=== PATIENT | female | born 1970 | race Caucasian/White ===

== ENCOUNTER → 2016-10-10 | Outpatient (CLI) | payer OTHER ==
[2016-10-10 17:25] LABS: POTASSIUM SERUM 4.3 MEQ/L (3.5-5.1)
== END ==
LOC: M WUC 10:54
PROVIDERS: ATTEND Nurse Practitioner Family
DX: L70.0 Acne vulgaris (principal); Z51.81 Encounter for therapeutic drug level monitoring

== ENCOUNTER → 2017-03-12 | Outpatient (CLI) | payer OTHER ==
[2017-03-12 19:29] LABS: ALBUMIN 4.4 GM/DL (3.2-5.2); ALBUMIN/GLOBULIN RATIO 1.76 (1.00-1.93); ALKALINE PHOSPHATASE 61 U/L (45-117); ALT/SGPT 22 U/L (12-78); ANION GAP 3 MEQ/L (8-16); AST/SGOT 15 U/L (15-37); BILIRUBIN,TOTAL 0.6 MG/DL (0.2-1.0); BLOOD UREA NITROGEN 18 MG/DL (7-18); CALCIUM LEVEL 9.2 MG/DL (8.5-10.1); CARBON DIOXIDE LEVEL 31 MEQ/L (21-32); CHLORIDE LEVEL 103 MEQ/L (98-107); CHOLESTEROL LEVEL 189 MG/DL (<200); CREATININE FOR GFR 0.87 MG/DL (0.55-1.02); GLOMERULAR FILTRATION RATE > 60.0 (>58); GLUCOSE, FASTING 90 MG/DL (70-105); PERCENT SATURATION 44.3 % (13.2-37.4); POTASSIUM SERUM 4.8 MEQ/L (3.5-5.1); SODIUM LEVEL 137 MEQ/L (136-145); TOTAL IRON BINDING CAPACITY 307 UG/DL (250-450); TOTAL PROTEIN 6.9 GM/DL (6.4-8.2); TRIGLYCERIDES LEVEL 52 MG/DL (<150)
[2017-03-12 20:05] LABS: MEAN CORPUSCULAR HEMOGLOBIN 30.4 pg (27.0-33.0); MEAN CORPUSCULAR HGB CONC 34.3 g/dl (32.0-36.5); MEAN CORPUSCULAR VOLUME 88.7 fl (80.0-96.0); PLATELET COUNT, AUTOMATED 265 k/mm3 (150-450); RED CELL DISTRIBUTION WIDTH 12.5 % (11.5-14.5)
[2017-03-12 20:50] LABS: BASOPHILS 1 % (0-4); EOSINOPHILS 10 % (0-5)
[2017-03-13 09:36] LABS: FOLATE 19.8 NG/ML; VITAMIN B12 LEVEL 564 PG/ML
== END ==
LOC: M WUC 09:26
PROVIDERS: ATTEND Emergency Medicine
DX: R53.83 Other fatigue (principal)

== ENCOUNTER → 2017-08-28 | Outpatient (CLI) | payer BC ==
--- NOTE | 2017-08-28 17:56 | REPMRS ---
Patient History The patient states she has not had a clinical breast exam in over a year. Patient has history of other cancer at age 19. No known family history of cancer. Taking unspecified hormones for 6 years. Digital Woman Screen Mammo: August 28, 2017 - Exam #: [id number] Bilateral CC and MLO view(s) were taken. Technologist: Vida Hsieh, Technologist Prior study comparison: May 13, 2015, digital woman screen mammo performed at [facility]. April 07, 2014, digital woman screen mammo performed at [facility]. FINDINGS: The breast tissue is heterogeneously dense. This may lower the sensitivity of mammography. There has been no change in the appearance of the mammogram from the prior studies. There is a moderate amount of residual fibroglandular tissue which is fairly symmetric. Stable minor tissue asymmetry in the inner half left breast is unchanged. There is no interval development of dominant mass, architectural distortion, or clustered microcalcification typical of malignancy. No significant changes when compared with prior studies. ASSESSMENT: BI-RADS/ACR category 2 mammogram. Benign finding(s). Recommendation Routine screening mammogram in 1 year (for women over age 40). This mammogram was interpreted with the aid of an FDA-approved computer-aided dectection system. A. Negative x-ray reports should not delay biopsy if a dominant or clinically suspicious mass is present. B. Four to eight percent of cancers are not identified by mammography. C. Adenosis and dense breast may obscure an underlying neoplasm. Electronically Signed By: Rober Colon MD 08/28/17 [id number]
== END ==
LOC: M WHC 14:59
PROVIDERS: ATTEND Emergency Medicine
DX: Z12.31 Encounter for screening mammogram for malignant neoplasm of breast (principal)

== ENCOUNTER 2017-09-12 15:52 | Emergency (ER) | payer BC, OTHER ==
[~2017-09-12] VITALS: Ht 165.1 cm; Wt 59.1 kg
[2017-09-12] MEDS ORDERED: DULO1CAP2 PO (16:05)
[2017-09-12] MEDS ORDERED: MULTCAP8 PO (16:05)
[2017-09-12] MEDS ORDERED: IBUP-1022 PO (16:05)
[2017-09-12] MEDS ORDERED: SPIR50TA2 (16:05)
[2017-09-12] MEDS ORDERED: TYLE325T5 PO (16:05)
[2017-09-12] MEDS ORDERED: MOME0.1S (16:05)
[2017-09-12] MEDS ORDERED: PEPT262T2 PO (16:05)
[2017-09-12] MEDS ORDERED: NS 1,000 ML IV ONE (17:30)
[2017-09-12] MEDS ORDERED: GI COCKTAIL 50ML BTL(HYOSCYAMINE/MAALOX/LIDOCAINE VISCOUS)(1:3:1) PO ONE (17:30)
[2017-09-12] MEDS ORDERED: ONDANSETRON 4MG/2ML VIAL (J2405) IV ONE (17:30)
[2017-09-12] MEDS: MORPHINE 4 MG/ML 1ML SYRINGE IV PRN ×2 (17:51→20:50)
[2017-09-12 18:05] LABS: BASO % 0.2 % (0.0-1.0); EOS % 0.2 % (0.0-3.0); IMMATURE GRANULOCYTE % 0.3 % (0-0); LYMPH % 2.2 % (24.0-44.0); MEAN CORPUSCULAR HEMOGLOBIN 30.4 pg (27.0-33.0); MEAN CORPUSCULAR HGB CONC 35.8 g/dl (32.0-36.5); MEAN CORPUSCULAR VOLUME 84.9 fl (80.0-96.0); MONO # 0.2 10^3/uL (0.0-0.8); MONO % 3.5 % (0.0-5.0); NEUTROPHILS # 6.1 10^3/uL (1.8-7.7); NEUTROPHILS % 93.6 % (36.0-66.0); PLATELET COUNT, AUTOMATED 182 10^3/uL (150-450); RED CELL DISTRIBUTION WIDTH 12.3 % (11.5-14.5); WHITE BLOOD COUNT 6.5 10^3/uL (4.0-10.0)
[2017-09-12 18:17] LABS: ALBUMIN 4.2 GM/DL (3.2-5.2); ALKALINE PHOSPHATASE 61 U/L (45-117); ALT/SGPT 39 U/L (12-78); ANION GAP 7 MEQ/L (8-16); AST/SGOT 27 U/L (7-37); BILIRUBIN,DIRECT 0.2 MG/DL (0.0-0.2); BILIRUBIN,TOTAL 0.7 MG/DL (0.2-1.0); BLOOD UREA NITROGEN 17 MG/DL (7-18); CALCIUM LEVEL 8.7 MG/DL (8.5-10.1); CARBON DIOXIDE LEVEL 29 MEQ/L (21-32); CHLORIDE LEVEL 102 MEQ/L (98-107); CREATININE FOR GFR 0.73 MG/DL (0.55-1.02); GLOMERULAR FILTRATION RATE > 60.0 (>58); GLUCOSE, FASTING 102 MG/DL (70-105); POTASSIUM SERUM 3.7 MEQ/L (3.5-5.1); SODIUM LEVEL 138 MEQ/L (136-145); TOTAL PROTEIN 7.2 GM/DL (6.4-8.2)
[2017-09-12 18:25] LABS: LYMPH # 0.1 10^3/uL (1.5-4.5); POSITIVE DIFF POS FLAG
[2017-09-12] MEDS ORDERED: READI-CAT 2 PO ONE ×2 (19:50→20:20)
[2017-09-12 20:31] LABS: MUCUS, URINE RFX SMALL (NEGATIVE); SPECIFIC GRAVITY UR AUTO RFX 1.027 (1.002-1.035); SQUAM EPITHELIAL CELL UR AURFX 4 /HPF (0-6)
--- NOTE | 2017-09-12 21:10 | REPUSA ---
CT of the abdomen without contrast Clinical statement: Pain. Technique: Multiple axial CT images were obtained from the base of the lungs to the iliac crests util izing 5 mm axial slices after administration of oral contrast. Coronal and sagittal reconstructions w ere also obtained. No comparison is available. Findings: The visualized lung bases are clear. The kidneys are normal in size bilaterally. There is no evidence of hydronephrosis or nephrolithiasis. The liver, spleen, pancreas, gallbladder and adrenal glands ar e unremarkable. The aorta demonstrates normal caliber and contour. There is no abdominal lymphadenopa thy or ascites. The stomach is distended. No focal inflammatory changes are seen in the stomach or sm all bowel. Moderate amount of stool fills the colon. There are no suspicious osseous abnormalities se en. Impression: 1. No obstructive or inflammatory bowel changes. There is distention of the stomach noted. Moderate c onstipation is appreciated. 2. No evidence of hydronephrosis or nephrolithiasis.
[2017-09-12] MEDS ORDERED: ZOFR4TAB3 PO (21:31)
[2017-09-12] MEDS ORDERED: SUCR1SS PO (21:31)
[2017-09-12 21:44] VITALS: BP 103/67
[2017-09-12] MEDS ORDERED: ONDANSETRON 4 MG ORAL DISINTEGRATING TAB (S0181) PO ONE (21:45)
[2017-09-12] MEDS ORDERED: SUCRALFATE 1 GM TAB PO ONE (21:45)
== END 2017-09-12 22:04 | disposition home or self-care (01) ==
LOC: M ED 15:52
DX: K29.00 Acute gastritis without bleeding (principal); K52.9 Noninfective gastroenteritis and colitis, unspecified; K27.9 Peptic ulcer, site unspecified, unspecified as acute or chronic, without hemorrhage or perforation; F33.9 Major depressive disorder, recurrent, unspecified; Z87.440 Personal history of urinary (tract) infections; Z91.048 Other nonmedicinal substance allergy status
CPT/HCPCS: 74160; 80048; 80076; 81001; 83690; 85025; 87086; 96374; 96375; 96376; 99284; J2405

== ENCOUNTER → 2017-10-10 | Outpatient (REF) | payer OTHER ==
[2017-10-13 00:06] LABS: H PYLORI STOOL ANTIGEN Negative (Negative)
== END ==
LOC: M LAB REF 10:04
DX: K59.00 Constipation, unspecified (principal)

== ENCOUNTER → 2017-10-26 | Outpatient (REF) | payer OTHER ==
[2017-10-28 14:15] LABS: HPV HYBRID CAPTURE II Positive (Negative)
== END ==
LOC: M SFHCWAGY 15:41
DX: Z12.4 Encounter for screening for malignant neoplasm of cervix (principal)

== ENCOUNTER → 2017-11-01 | Outpatient (REF) | payer OTHER | LOC: M SFHCWAGY 13:07 | DX: R87.810 Cervical high risk human papillomavirus (HPV) DNA test positive (principal) ==

== ENCOUNTER 2017-11-24 11:31 | Day surgery (SDC) | payer BC, OTHER ==
[2017-11-24] MEDS: NS 1,000 ML IV (11:58)
[2017-11-24] MEDS ORDERED: PROPOFOL 200 MG/20 ML VIAL As Ordered (12:49)
== END 2017-11-24 13:51 | disposition home or self-care (01) ==
LOC: M OPP 11:31
DX: R93.3 Abnormal findings on diagnostic imaging of other parts of digestive tract (principal); K62.5 Hemorrhage of anus and rectum; K59.00 Constipation, unspecified; F32.9 Major depressive disorder, single episode, unspecified; J45.909 Unspecified asthma, uncomplicated; Z88.3 Allergy status to other anti-infective agents; Z79.899 Other long term (current) drug therapy
CPT/HCPCS: 45378

== ENCOUNTER 2017-12-25 07:29 | Day surgery (SDC) | payer BC, OTHER ==
[2017-12-25] MEDS: NS 1,000 ML IV (08:21)
[2017-12-25] MEDS ORDERED: PROPOFOL 200 MG/20 ML VIAL As Ordered ×2 (09:16→09:57)
== END 2017-12-25 10:58 | disposition home or self-care (01) ==
LOC: M OPP 07:29
DX: R93.3 Abnormal findings on diagnostic imaging of other parts of digestive tract (principal); K59.00 Constipation, unspecified; R19.4 Change in bowel habit; K63.89 Other specified diseases of intestine; K64.8 Other hemorrhoids; F32.9 Major depressive disorder, single episode, unspecified; J45.909 Unspecified asthma, uncomplicated; Z88.3 Allergy status to other anti-infective agents; Z79.899 Other long term (current) drug therapy
CPT/HCPCS: 45380

== ENCOUNTER → 2018-12-27 | Outpatient (CLI) | payer BC ==
[~2018-12-27] MED LIST: ALL10TAB28 PO; DULO1CAP2 PO; IBUP-1022 PO; MIRA3350 PO; MIRE1IUD IU; MOME0.1S; MULTCAP8 PO; PEPT262T2 PO; PROAAER10 INH; SENN8.6C PO; SPIR-10 PO; SPIR50TA4 PO; SUCR1SS PO; TYLE325T5 PO; VITA200015 PO; ZOFR4TAB14 PO
--- NOTE | 2018-12-27 16:34 | REPMRS ---
Patient History The patient states she had a clinical breast exam in Patient has history of basal cell skin cancer at age 19. No known family history of cancer. Taking hormonal contraceptives for 7 years 4 months. 3D TOMOSYNTHESIS WAS PERFORMED. Digital Woman Screen Mammo: December 27, 2018 - Exam #: [id number] Bilateral CC and MLO view(s) were taken. Technologist: Katherin Ordaz, Technologist Prior study comparison: August 28, 2017, digital woman screen mammo performed at [facility]. May 13, 2015, digital woman screen mammo performed at [facility]. FINDINGS: The breast tissue is heterogeneously dense. This may lower the sensitivity of mammography. There has been no change in the appearance of the mammogram from the prior studies. There is a moderate amount of residual fibroglandular tissue which is fairly symmetric. There is no interval development of dominant mass, areas of architectural distortion, or clustered microcalcification typical of malignancy. Assessment: BI-RADS/ACR category 1 mammogram. Negative Mammogram. Recommendation Routine screening mammogram in 1 year (for women over age 40). This mammogram was interpreted with the aid of an FDA-approved computer-aided dectection system. Electronically Signed By: Edgard Lu MD 12/27/18 [id number]
== END ==
LOC: M WHC 15:17
PROVIDERS: ATTEND Nurse Practitioner Women's Health
DX: Z12.31 Encounter for screening mammogram for malignant neoplasm of breast (principal); Z85.828 Personal history of other malignant neoplasm of skin; Z92.0 Personal history of contraception

== ENCOUNTER → 2018-12-27 | Outpatient (REF) | payer OTHER ==
[2018-12-29 15:33] LABS: HPV HYBRID CAPTURE II Negative (Negative)
== END ==
LOC: M SFHCWAGY 15:15
PROVIDERS: ATTEND Nurse Practitioner Women's Health
DX: Z12.4 Encounter for screening for malignant neoplasm of cervix (principal)

== ENCOUNTER → 2019-02-09 | Outpatient (CLI) | payer BC ==
[2019-02-09 13:32] LABS: BASO % 0.8 % (0.0-1.0); EOS # 0.3 10^3/uL (0.0-0.50); EOS % 7.2 % (0.0-3.0); HEMATOCRIT 41.2 % (36.0-47.0); HEMOGLOBIN 13.7 g/dl (12.0-15.5); LYMPH % 24.5 % (24.0-44.0); MEAN CORPUSCULAR HEMOGLOBIN 30.2 pg (27.0-33.0); MEAN CORPUSCULAR HGB CONC 33.3 g/dl (32.0-36.5); MEAN CORPUSCULAR VOLUME 90.9 fl (80.0-96.0); MONO # 0.4 10^3/uL (0.0-0.8); MONO % 11.1 % (0.0-5.0); NEUTROPHILS # 2.2 10^3/uL (1.8-7.7); NEUTROPHILS % 56.1 % (36.0-66.0); PLATELET COUNT, AUTOMATED 225 10^3/uL (150-450); RED BLOOD COUNT 4.53 10^6/uL (4.00-5.40); WHITE BLOOD COUNT 3.9 10^3/uL (4.0-10.0)
[2019-02-09 13:44] LABS: ALBUMIN 4.2 GM/DL (3.2-5.2); ALT/SGPT 22 U/L (12-78); BILIRUBIN,TOTAL 0.5 MG/DL (0.2-1.0); BLOOD UREA NITROGEN 16 MG/DL (7-18); CALCIUM LEVEL 9.1 MG/DL (8.5-10.1); CARBON DIOXIDE LEVEL 30 MEQ/L (21-32); CHLORIDE LEVEL 106 MEQ/L (98-107); CHOLESTEROL LEVEL 194 MG/DL (<200); CHOLESTEROL RISK RATIO 3.129 (<5); CREATININE FOR GFR 0.84 MG/DL (0.55-1.30); FERRITIN 50 NG/ML (8-252); FREE T4 0.72 NG/DL (0.76-1.46); GLOMERULAR FILTRATION RATE > 60.0 (>51); GLUCOSE, FASTING 92 MG/DL (70-100); HDL CHOLESTEROL 62 MG/DL (>40); IRON (FE) 173 UG/DL (50-170); LDL CHOLESTEROL 119 MG/DL (<100); NON-HDL-C 132 MG/DL; PERCENT SATURATION 59.2 % (13.2-45.0); POTASSIUM SERUM 4.5 MEQ/L (3.5-5.1); SODIUM LEVEL 141 MEQ/L (136-145); TOTAL IRON BINDING CAPACITY 292 UG/DL (250-450); TOTAL PROTEIN 6.7 GM/DL (6.4-8.2); TRIGLYCERIDES LEVEL 64 MG/DL (<150)
== END ==
LOC: M WUC 10:02
PROVIDERS: ATTEND Physician Assistant
DX: Z13.29 Encounter for screening for other suspected endocrine disorder (principal); F33.0 Major depressive disorder, recurrent, mild

== ENCOUNTER → 2019-05-19 | Outpatient (CLI) | payer OTHER, BC ==
[~2019-05-19] MED LIST changes: -DULO1CAP2 PO; +DULO1CAP5 PO
[2019-05-19 17:29] LABS: BASO % 0.2 % (0.0-1.0); EOS # 0.2 10^3/uL (0.0-0.50); EOS % 5.6 % (0.0-3.0); HEMATOCRIT 42.7 % (36.0-47.0); HEMOGLOBIN 14.1 g/dl (12.0-15.5); LYMPH # 0.9 10^3/uL (1.5-4.5); LYMPH % 22.9 % (24.0-44.0); MEAN CORPUSCULAR HEMOGLOBIN 29.4 pg (27.0-33.0); MEAN CORPUSCULAR VOLUME 89.1 fl (80.0-96.0); MONO # 0.5 10^3/uL (0.0-0.8); MONO % 12.2 % (0.0-5.0); NEUTROPHILS # 2.4 10^3/uL (1.8-7.7); NEUTROPHILS % 58.9 % (36.0-66.0); PLATELET COUNT, AUTOMATED 256 10^3/uL (150-450); RED BLOOD COUNT 4.79 10^6/uL (4.00-5.40); WHITE BLOOD COUNT 4.1 10^3/uL (4.0-10.0)
[2019-05-19 17:45] LABS: FREE T4 0.69 NG/DL (0.76-1.46); THYROID STIMULATING HORMONE 3.02 uIU/ML (0.358-3.740)
== END ==
LOC: M WUC 09:46
PROVIDERS: ATTEND Physician Assistant
DX: Z13.29 Encounter for screening for other suspected endocrine disorder (principal)

== ENCOUNTER → 2019-08-14 | Outpatient (CLI) | payer OTHER, BC ==
[~2019-08-14] MED LIST changes: -ALL10TAB28 PO; +ALL10TAB29 PO
[2019-08-14 20:32] LABS: FREE T4 0.88 NG/DL (0.76-1.46)
[2019-08-14 20:34] LABS: THYROID PEROXIDASE ANTIBODY < 28.0 U/ML (<60.0)
== END ==
LOC: M WUC 17:11
PROVIDERS: ATTEND Physician Assistant
DX: E03.9 Hypothyroidism, unspecified (principal)

== ENCOUNTER → 2020-01-14 | Outpatient (REF) | payer OTHER | LOC: M SFHCWAGY 18:10 | PROVIDERS: ATTEND Nurse Practitioner Women's Health | DX: Z12.4 Encounter for screening for malignant neoplasm of cervix (principal) | CPT/HCPCS: 87624; G0123 ==

== ENCOUNTER → 2020-01-14 | Outpatient (CLI) | payer BC ==
--- NOTE | 2020-01-14 14:27 | REPMRS ---
Patient History The patient states she had a clinical breast exam in December 2019. No known family history of cancer. Taking hormonal contraceptives for 7 years 4 months. 3D TOMOSYNTHESIS WAS PERFORMED. [facility] VOLPARA BREAST DENSITY C. Digital Woman Screen Mammo: January 14, 2020 - Exam #: [id number] Bilateral CC and MLO view(s) were taken. Technologist: Sunitha Blancas, Technologist Prior study comparison: December 27, 2018, bilateral digital woman screen mammo performed at [facility]. August 28, 2017, digital woman screen mammo performed at [facility]. FINDINGS: The breast tissue is heterogeneously dense. This may lower the sensitivity of mammography. There has been no change in the appearance of the mammogram from the prior studies. There is a moderate amount of residual fibroglandular tissue which is fairly symmetric. There is no interval development of dominant mass, areas of architectural distortion, or clustered microcalcification typical of malignancy. Assessment: BI-RADS/ACR category 1 mammogram. Negative Mammogram. Recommendation Routine screening mammogram in 1 year (for women over age 40). This mammogram was interpreted with the aid of an FDA-approved computer-aided dectection system. Electronically Signed By: Edgard Lu MD 01/14/20 [id number]
== END ==
LOC: M WHC 13:08
PROVIDERS: ATTEND Nurse Practitioner Women's Health
DX: Z12.31 Encounter for screening mammogram for malignant neoplasm of breast (principal)

== ENCOUNTER → 2020-02-10 | Outpatient (CLI) | payer OTHER ==
[2020-02-10 18:37] LABS: FREE T4 1.08 NG/DL (0.76-1.46); THYROID STIMULATING HORMONE 0.973 uIU/ML (0.358-3.740)
== END ==
LOC: M WUC 15:11
PROVIDERS: ATTEND Physician Assistant
DX: E03.9 Hypothyroidism, unspecified (principal)

== ENCOUNTER → 2020-05-20 | Outpatient (CLI) | payer OTHER ==
[~2020-05-20] MED LIST changes: -ALL10TAB29 PO; +CETI-24 PO
[2020-05-20 12:42] LABS: HEMOGLOBIN 13.9 g/dl (12.0-15.5); LYMPH # 0.6 10^3/uL (1.5-5.0); LYMPH % 6.5 % (24.0-44.0); MEAN CORPUSCULAR HEMOGLOBIN 28.9 pg (27.0-33.0); MEAN CORPUSCULAR HGB CONC 32.3 g/dl (32.0-36.5); MEAN CORPUSCULAR VOLUME 89.4 fl (80.0-96.0); MONO # 0.7 10^3/uL (0.0-0.8); MONO % 7.4 % (0.0-5.0); NEUTROPHILS # 7.7 10^3/uL (1.5-8.5); NEUTROPHILS % 85.7 % (36.0-66.0); PLATELET COUNT, AUTOMATED 284 10^3/uL (150-450); RED BLOOD COUNT 4.81 10^6/uL (4.00-5.40)
[2020-05-20 12:44] LABS: C REACTIVE PROTEIN QUANTITATIV < 0.30 MG/DL (0.00-0.30); RHEUMATOID FACTOR QUANT < 10.0 IU/ML (<15.0)
[2020-05-20 13:06] LABS: ERYTHROCYTE SEDIMENTATION RATE 2 mm/hr (0-30)
[2020-05-21 14:14] LABS: ANTINUCLEAR ANTIBODIES DIRECT Negative (Negative)
== END ==
LOC: M PLALAB 09:23
PROVIDERS: ATTEND Nurse Practitioner
DX: R21 Rash and other nonspecific skin eruption (principal)

== ENCOUNTER → 2020-09-08 | Outpatient (REF) | payer OTHER ==
[2020-09-08 16:31] LABS: BASO % 0.3 % (0.0-1.0); EOS # 0.2 10^3/uL (0.0-0.5); EOS % 2.9 % (0.0-3.0); HEMATOCRIT 39.6 % (36.0-47.0); HEMOGLOBIN 13.3 g/dl (12.0-15.5); LYMPH # 1.3 10^3/uL (1.5-5.0); LYMPH % 17.2 % (24.0-44.0); MEAN CORPUSCULAR HEMOGLOBIN 29.3 pg (27.0-33.0); MEAN CORPUSCULAR HGB CONC 33.6 g/dl (32.0-36.5); MEAN CORPUSCULAR VOLUME 87.2 fl (80.0-96.0); MONO # 0.6 10^3/uL (0.0-0.8); MONO % 8.4 % (0.0-5.0); NEUTROPHILS # 5.2 10^3/uL (1.5-8.5); NEUTROPHILS % 71.1 % (36.0-66.0); PLATELET COUNT, AUTOMATED 233 10^3/uL (150-450); RED BLOOD COUNT 4.54 10^6/uL (4.00-5.40); WHITE BLOOD COUNT 7.3 10^3/uL (4.0-10.0)
[2020-09-08 17:13] LABS: ALBUMIN 4.3 GM/DL (3.2-5.2); ALT/SGPT 19 U/L (12-78); BILIRUBIN,TOTAL 0.3 MG/DL (0.2-1.0); BLOOD UREA NITROGEN 17 MG/DL (7-18); CALCIUM LEVEL 10.1 MG/DL (8.5-10.1); CARBON DIOXIDE LEVEL 30 MEQ/L (21-32); CHLORIDE LEVEL 102 MEQ/L (98-107); CREATININE FOR GFR 0.88 MG/DL (0.55-1.30); GLOMERULAR FILTRATION RATE > 60.0 (>51); GLUCOSE, FASTING 76 MG/DL (70-100); POTASSIUM SERUM 4.2 MEQ/L (3.5-5.1); SODIUM LEVEL 135 MEQ/L (136-145); TOTAL PROTEIN 6.9 GM/DL (6.4-8.2)
== END ==
LOC: M LABDRWAD 16:08
PROVIDERS: ATTEND Physician Assistant
DX: E03.9 Hypothyroidism, unspecified (principal)

== ENCOUNTER → 2020-11-12 | Outpatient (REF) | payer OTHER | LOC: M SFHCWAGY 13:09 | PROVIDERS: ATTEND Nurse Practitioner Women's Health | DX: R30.0 Dysuria (principal); R10.2 Pelvic and perineal pain ==

== ENCOUNTER → 2021-01-18 | Outpatient (CLI) | payer BC, OTHER ==
--- NOTE | 2021-01-18 16:21 | REP ---
INDICATION: SCR MAMMO. COMPARISON: Multiple TECHNIQUE: Digital screening mammography was carried out by laterally in the CC and MLO projections in both 2D and 3D modalities and compared to the prior exams. By history, the patient has no complaints of a palpable breast abnormality or other significant breast complaints.. FINDINGS: The breasts are unchanged in size and shape. Once again, dense heterogenous fibroglandular elements are seen bilaterally and is stable appearing pattern but to such a degree that the sensitivity of the mammogram and detecting cancer is decreased. In the upper outer quadrant of the left breast there is an area of potential sariah asymmetry within dense breast parenchyma. No other suspicious features are seen in either breast. There are no suspicious microcalcifications. There is no skin thickening or nipple retraction. The Volpara volumetric breast density pattern is C. IMPRESSION: BIRADS/ACR category 0. Potential new asymmetry seen in the left breast as described above for which diagnostic digital magnified spot compression views are recommended in the CC and MLO projections along with diagnostic ultrasonography if indicated. This patient's Tyrer-Cuzick lifetime breast cancer risk assessment score is 11.5%. This mammogram was interpreted with the aid of an FDA-approved computer-aided detection system. The patient states she had a clinical breast exam in 12/2020. The patient letter being requested is M0. RECOMMENDATION: As above <Electronically signed by Abdulaziz Dinh > 01/18/21 [id number]
== END ==
LOC: M WHC 14:52
PROVIDERS: ATTEND Nurse Practitioner Women's Health
DX: Z12.31 Encounter for screening mammogram for malignant neoplasm of breast (principal); N64.89 Other specified disorders of breast

== ENCOUNTER → 2021-01-26 | Outpatient (CLI) | payer BC ==
--- NOTE | 2021-01-26 14:25 | REP ---
INDICATION: ADDITIONAL VIEWS LT BREAST. And left breast focused ultrasound COMPARISON: Multiple TECHNIQUE: Diagnostic digital magnified spot compression views of the left breast were obtained in the CC and MLO projections over the region of interest in the upper outer quadrant. FINDINGS: The potential area of asymmetry seen in the left breast on the screening examination of 01/18/2021 has compressed out to normal breast parenchyma. No abnormalities are noted. Diagnostic ultrasonography of the left breast over the region of interest shows no cystic or solid masses. IMPRESSION: BIRADS/ACR category 2 negative mammogram. And negative breast ultrasound. There is no evidence of malignant alteration of the left breast. The patient letter is M1 RECOMMENDATION: Repeat screening mammography recommended 1 year (for women over 40). <Electronically signed by Abdulaziz Dinh > 01/26/21 [id number]
== END ==
LOC: M WHC 12:56
PROVIDERS: ATTEND Nurse Practitioner Women's Health
DX: Z12.31 Encounter for screening mammogram for malignant neoplasm of breast (principal)

== ENCOUNTER → 2021-02-19 | Outpatient (CLI) | payer OTHER ==
[2021-02-19 17:58] LABS: BLOOD UREA NITROGEN 18 MG/DL (7-18); CALCIUM LEVEL 10.1 MG/DL (8.5-10.1); CARBON DIOXIDE LEVEL 30 MEQ/L (21-32); CHLORIDE LEVEL 102 MEQ/L (98-107); CREATININE FOR GFR 0.89 MG/DL (0.55-1.30); FREE T4 1.04 NG/DL (0.76-1.46); GLOMERULAR FILTRATION RATE > 60.0 (>51); GLUCOSE, FASTING 77 MG/DL (70-100); POTASSIUM SERUM 4.3 MEQ/L (3.5-5.1); SODIUM LEVEL 137 MEQ/L (136-145); THYROID STIMULATING HORMONE 0.914 uIU/ML (0.358-3.740)
== END ==
LOC: M WUC 10:40
PROVIDERS: ATTEND Physician Assistant
DX: E03.9 Hypothyroidism, unspecified (principal); E55.9 Vitamin D deficiency, unspecified

== ENCOUNTER → 2021-08-27 | Outpatient (CLI) | payer OTHER ==
[2021-08-27 19:16] LABS: BASO % 0.1 % (0.0-1.0); EOS # 0.3 10^3/uL (0.0-0.5); EOS % 4.8 % (0.0-3.0); HEMATOCRIT 40.6 % (36.0-47.0); HEMOGLOBIN 13.2 g/dl (12.0-15.5); LYMPH # 1.3 10^3/uL (1.5-5.0); LYMPH % 19.1 % (24.0-44.0); MEAN CORPUSCULAR HEMOGLOBIN 29.3 pg (27.0-33.0); MEAN CORPUSCULAR HGB CONC 32.5 g/dl (32.0-36.5); MONO # 0.6 10^3/uL (0.0-0.8); MONO % 9.4 % (2.0-8.0); NEUTROPHILS # 4.5 10^3/uL (1.5-8.5); NEUTROPHILS % 66.5 % (36.0-66.0); PLATELET COUNT, AUTOMATED 231 10^3/uL (150-450); RED BLOOD COUNT 4.51 10^6/uL (4.00-5.40); WHITE BLOOD COUNT 6.7 10^3/uL (4.0-10.0)
[2021-08-27 19:47] LABS: ALBUMIN 4.2 GM/DL (3.2-5.2); ALT/SGPT 21 U/L (12-78); BILIRUBIN,TOTAL 0.2 MG/DL (0.2-1.0); BLOOD UREA NITROGEN 17 MG/DL (7-18); CALCIUM LEVEL 9.5 MG/DL (8.5-10.1); CARBON DIOXIDE LEVEL 30 MEQ/L (21-32); CHLORIDE LEVEL 104 MEQ/L (98-107); CREATININE FOR GFR 0.78 MG/DL (0.55-1.30); FREE T4 0.86 NG/DL (0.76-1.46); GLOMERULAR FILTRATION RATE > 60.0 (>51); GLUCOSE, FASTING 108 MG/DL (70-100); POTASSIUM SERUM 4.3 MEQ/L (3.5-5.1); SODIUM LEVEL 139 MEQ/L (136-145)
[2021-08-27 19:48] LABS: TOTAL 25(OH) VITAMIN D 34.9 NG/ML (30.0-100.0)
== END ==
LOC: M WUC 15:17
PROVIDERS: ATTEND Physician Assistant
DX: E03.9 Hypothyroidism, unspecified (principal)

== ENCOUNTER → 2021-09-15 | Outpatient (REF) | payer OTHER | LOC: M LAB REF 18:46 | PROVIDERS: ATTEND Family Medicine | DX: J06.9 Acute upper respiratory infection, unspecified (principal) ==

== ENCOUNTER → 2022-04-15 | Outpatient (REF) | payer OTHER | LOC: M PLALAB 13:26 | PROVIDERS: ATTEND Specialist | DX: Z12.4 Encounter for screening for malignant neoplasm of cervix (principal) | CPT/HCPCS: 87624; G0123 ==

== ENCOUNTER → 2022-04-15 | Outpatient (CLI) | payer BC, OTHER | LOC: M WHC 14:34 | PROVIDERS: ATTEND Specialist | DX: Z12.31 Encounter for screening mammogram for malignant neoplasm of breast (principal) ==

== ENCOUNTER → 2022-08-02 | Outpatient (REF) | payer BC, OTHER | LOC: M LAB REF 17:17 | PROVIDERS: ATTEND Physician Assistant | DX: N39.0 Urinary tract infection, site not specified (principal) ==

== ENCOUNTER → 2022-09-15 | Outpatient (REF) | payer BC, OTHER | LOC: M LAB REF 17:07 | PROVIDERS: ATTEND Physician Assistant | DX: N39.0 Urinary tract infection, site not specified (principal) ==

== ENCOUNTER → 2022-10-10 | Outpatient (CLI) | payer BC, OTHER ==
[2022-10-10 12:31] LABS: BASO % 0.2 % (0.0-1.0); EOS # 0.3 10^3/uL (0.0-0.5); EOS % 5.9 % (0.0-3.0); HEMATOCRIT 40.9 % (36.0-47.0); HEMOGLOBIN 13.5 g/dl (12.0-15.5); LYMPH # 1.1 10^3/uL (1.5-5.0); LYMPH % 25.4 % (24.0-44.0); MEAN CORPUSCULAR HEMOGLOBIN 28.8 pg (27.0-33.0); MEAN CORPUSCULAR VOLUME 87.4 fl (80.0-96.0); MONO # 0.4 10^3/uL (0.0-0.8); MONO % 10.5 % (2.0-8.0); NEUTROPHILS # 2.4 10^3/uL (1.5-8.5); NEUTROPHILS % 57.5 % (36.0-66.0); PLATELET COUNT, AUTOMATED 272 10^3/uL (150-450); RED BLOOD COUNT 4.68 10^6/uL (4.00-5.40); WHITE BLOOD COUNT 4.2 10^3/uL (4.0-10.0)
[2022-10-10 12:51] LABS: ALBUMIN 4.2 G/DL (3.2-5.2); ALKALINE PHOSPHATASE 71 U/L (46-116); ALT/SGPT 18 U/L (7.0-40); AST/SGOT 13 U/L (<34); BILIRUBIN,TOTAL 0.3 MG/DL (0.3-1.2); BLOOD UREA NITROGEN 19 MG/DL (9-23); CALCIUM LEVEL 9.5 MG/DL (8.5-10.1); CARBON DIOXIDE LEVEL 31 MMOL/L (20-31); CHLORIDE LEVEL 106 MMOL/L (98-107); CREATININE FOR GFR 0.83 MG/DL (0.55-1.30); GLOMERULAR FILTRATION RATE > 60.0 (>51); GLUCOSE, FASTING 85 MG/DL (60-100); POTASSIUM SERUM 4.8 MMOL/L (3.5-5.1); SODIUM LEVEL 143 MMOL/L (136-145); TOTAL PROTEIN 6.5 G/DL (5.7-8.2)
== END ==
LOC: M WUC 09:18
PROVIDERS: ATTEND Nurse Practitioner Family
DX: L70.0 Acne vulgaris (principal)

== ENCOUNTER → 2022-10-10 | Outpatient (CLI) | payer BC, OTHER ==
[2022-10-10 12:19] LABS: BASO % 0.2 % (0.0-1.0); EOS # 0.2 10^3/uL (0.0-0.5); EOS % 5.8 % (0.0-3.0); HEMATOCRIT 40.9 % (36.0-47.0); HEMOGLOBIN 13.4 g/dl (12.0-15.5); LYMPH % 23.5 % (24.0-44.0); MEAN CORPUSCULAR HEMOGLOBIN 28.7 pg (27.0-33.0); MEAN CORPUSCULAR HGB CONC 32.8 g/dl (32.0-36.5); MEAN CORPUSCULAR VOLUME 87.6 fl (80.0-96.0); MONO # 0.4 10^3/uL (0.0-0.8); MONO % 9.9 % (2.0-8.0); NEUTROPHILS # 2.5 10^3/uL (1.5-8.5); NEUTROPHILS % 60.4 % (36.0-66.0); PLATELET COUNT, AUTOMATED 277 10^3/uL (150-450); RED BLOOD COUNT 4.67 10^6/uL (4.00-5.40); WHITE BLOOD COUNT 4.1 10^3/uL (4.0-10.0)
[2022-10-10 12:53] LABS: ALBUMIN 4.2 G/DL (3.2-5.2); ALKALINE PHOSPHATASE 71 U/L (46-116); ALT/SGPT 17 U/L (7.0-40); AST/SGOT 13 U/L (<34); BILIRUBIN,TOTAL 0.3 MG/DL (0.3-1.2); BLOOD UREA NITROGEN 19 MG/DL (9-23); CALCIUM LEVEL 9.6 MG/DL (8.5-10.1); CARBON DIOXIDE LEVEL 31 MMOL/L (20-31); CHLORIDE LEVEL 106 MMOL/L (98-107); CHOLESTEROL LEVEL 225 MG/DL (<200); CHOLESTEROL RISK RATIO 4.03 (<5); CREATININE FOR GFR 0.88 MG/DL (0.55-1.30); GLOMERULAR FILTRATION RATE > 60.0 (>51); GLUCOSE, FASTING 86 MG/DL (60-100); HDL CHOLESTEROL 55.7 MG/DL (>40); LDL CHOLESTEROL 152.7 MG/DL (<100); NON-HDL-C 169 MG/DL; POTASSIUM SERUM 4.5 MMOL/L (3.5-5.1); SODIUM LEVEL 142 MMOL/L (136-145); TOTAL PROTEIN 6.5 G/DL (5.7-8.2); TRIGLYCERIDES LEVEL 83 MG/DL (<150)
[2022-10-10 12:56] LABS: FREE T4 1.12 NG/DL (0.89-1.76); THYROID STIMULATING HORMONE 0.887 uIU/ML (0.55-4.78)
[2022-10-10 12:58] LABS: TOTAL 25(OH) VITAMIN D 70.4 NG/ML (20.0-100.0)
== END ==
LOC: M WUC 09:20
PROVIDERS: ATTEND Family Medicine
DX: E03.9 Hypothyroidism, unspecified (principal); Z13.29 Encounter for screening for other suspected endocrine disorder; Z13.220 Encounter for screening for lipoid disorders; Z13.0 Encounter for screening for diseases of the blood and blood-forming organs and certain disorders involving the immune mechanism

== ENCOUNTER → 2022-11-22 | Outpatient (CLI) | payer BC, OTHER ==
[2022-11-22 13:47] LABS: BASO % 0.2 % (0.0-1.0); EOS # 0.2 10^3/uL (0.0-0.5); EOS % 3.5 % (0.0-3.0); HEMATOCRIT 40.5 % (36.0-47.0); HEMOGLOBIN 13.2 g/dl (12.0-15.5); LYMPH # 0.7 10^3/uL (1.5-5.0); LYMPH % 16.1 % (24.0-44.0); MEAN CORPUSCULAR HEMOGLOBIN 28.6 pg (27.0-33.0); MEAN CORPUSCULAR HGB CONC 32.6 g/dl (32.0-36.5); MEAN CORPUSCULAR VOLUME 87.7 fl (80.0-96.0); MONO # 0.5 10^3/uL (0.0-0.8); NEUTROPHILS # 3.2 10^3/uL (1.5-8.5); NEUTROPHILS % 69.5 % (36.0-66.0); PLATELET COUNT, AUTOMATED 243 10^3/uL (150-450); RED BLOOD COUNT 4.62 10^6/uL (4.00-5.40); WHITE BLOOD COUNT 4.6 10^3/uL (4.0-10.0)
[2022-11-22 13:51] LABS: ALBUMIN 4.2 G/DL (3.2-5.2); ALKALINE PHOSPHATASE 74 U/L (46-116); ALT/SGPT 29 U/L (7.0-40); AST/SGOT 17 U/L (<34); BILIRUBIN,TOTAL 0.5 MG/DL (0.3-1.2); BLOOD UREA NITROGEN 10 MG/DL (9-23); CALCIUM LEVEL 10.2 MG/DL (8.5-10.1); CARBON DIOXIDE LEVEL 32 MMOL/L (20-31); CHLORIDE LEVEL 101 MMOL/L (98-107); GLOMERULAR FILTRATION RATE > 60.0 (>51); GLUCOSE, FASTING 74 MG/DL (60-100); POTASSIUM SERUM 4.3 MMOL/L (3.5-5.1); SODIUM LEVEL 139 MMOL/L (136-145)
[2022-11-22 15:29] LABS: TOTAL PROTEIN 6.5 G/DL (5.7-8.2)
[2022-11-23 18:09] LABS: H PYLORI SERUM QUANT IGA <9.0 units (0.0-8.9); H PYLORI SERUM QUANT IGM <9.0 units (0.0-8.9); H PYLORI SERUM QUANT IgG ABY 0.13 (0.00-0.79)
== END ==
LOC: M PLALAB 09:10
PROVIDERS: ATTEND Family Medicine
DX: R19.7 Diarrhea, unspecified (principal)

== ENCOUNTER → 2023-04-12 | Outpatient (CLI) | payer BC, OTHER ==
[2023-04-12 17:42] LABS: ALBUMIN 4.3 G/DL (3.2-5.2); ALKALINE PHOSPHATASE 83 U/L (46-116); ALT/SGPT 17 U/L (7.0-40); AST/SGOT < 8 U/L (<34); BILIRUBIN,TOTAL 0.4 MG/DL (0.3-1.2); BLOOD UREA NITROGEN 18 MG/DL (9-23); CALCIUM LEVEL 9.9 MG/DL (8.5-10.1); CARBON DIOXIDE LEVEL 31 MMOL/L (20-31); CHLORIDE LEVEL 101 MMOL/L (98-107); CREATININE FOR GFR 0.72 MG/DL (0.55-1.30); GLOMERULAR FILTRATION RATE > 60.0 (>51); GLUCOSE, FASTING 82 MG/DL (60-100); POTASSIUM SERUM 3.7 MMOL/L (3.5-5.1); SODIUM LEVEL 139 MMOL/L (136-145); TOTAL PROTEIN 6.7 G/DL (5.7-8.2)
== END ==
LOC: M PLALAB 15:36
PROVIDERS: ATTEND Nurse Practitioner Family
DX: L70.0 Acne vulgaris (principal); Z79.899 Other long term (current) drug therapy; Z51.81 Encounter for therapeutic drug level monitoring

== ENCOUNTER → 2023-09-06 | Outpatient (CLI) | payer BC, OTHER | LOC: M WHC 14:38 | PROVIDERS: ATTEND Specialist | DX: Z12.31 Encounter for screening mammogram for malignant neoplasm of breast (principal) ==

== ENCOUNTER → 2023-11-21 | Outpatient (CLI) | payer BC, OTHER ==
[2023-11-21 18:24] LABS: ALBUMIN 4.3 G/DL (3.2-5.2); ALKALINE PHOSPHATASE 98 U/L (46-116); ALT/SGPT 22 U/L (7.0-40); AST/SGOT 13 U/L (<34); BILIRUBIN,TOTAL 0.3 MG/DL (0.3-1.2); BLOOD UREA NITROGEN 18 MG/DL (9-23); CALCIUM LEVEL 10.2 MG/DL (8.5-10.1); CARBON DIOXIDE LEVEL 31 MMOL/L (20-31); CHLORIDE LEVEL 104 MMOL/L (98-107); CREATININE FOR GFR 0.78 MG/DL (0.55-1.30); GLOMERULAR FILTRATION RATE > 60.0 (>51); GLUCOSE, FASTING 86 MG/DL (60-100); POTASSIUM SERUM 4.4 MMOL/L (3.5-5.1); SODIUM LEVEL 140 MMOL/L (136-145); TOTAL PROTEIN 6.7 G/DL (5.7-8.2)
== END ==
LOC: M PLALAB 15:03
PROVIDERS: ATTEND Nurse Practitioner Family
DX: Z51.81 Encounter for therapeutic drug level monitoring (principal); L70.0 Acne vulgaris; Z79.899 Other long term (current) drug therapy

== ENCOUNTER → 2023-12-18 | Outpatient (CLI) | payer BC ==
[2023-12-18 19:02] LABS: BASO % 0.3 % (0.0-1.0); EOS # 0.4 10^3/uL (0.0-0.5); EOS % 5.8 % (0.0-3.0); HEMATOCRIT 41.3 % (36.0-47.0); HEMOGLOBIN 13.7 g/dl (12.0-15.5); LYMPH # 1.2 10^3/uL (1.5-5.0); LYMPH % 18.1 % (24.0-44.0); MEAN CORPUSCULAR HEMOGLOBIN 29.1 pg (27.0-33.0); MEAN CORPUSCULAR HGB CONC 33.2 g/dl (32.0-36.5); MEAN CORPUSCULAR VOLUME 87.7 fl (80.0-96.0); MONO # 0.5 10^3/uL (0.0-0.8); MONO % 7.5 % (2.0-8.0); NEUTROPHILS # 4.5 10^3/uL (1.5-8.5); NEUTROPHILS % 68.1 % (36.0-66.0); PLATELET COUNT, AUTOMATED 257 10^3/uL (150-450); RED BLOOD COUNT 4.71 10^6/uL (4.00-5.40); WHITE BLOOD COUNT 6.6 10^3/uL (4.0-10.0)
[2023-12-18 19:16] LABS: URIC ACID 3.7 MG/DL (3.1-7.8)
[2023-12-18 19:18] LABS: C REACTIVE PROTEIN QUANTITATIV < 0.40 MG/DL (<1.0)
[2023-12-18 19:19] LABS: ALBUMIN 4.4 G/DL (3.2-5.2); ALKALINE PHOSPHATASE 93 U/L (46-116); ALT/SGPT 17 U/L (7.0-40); AST/SGOT 14 U/L (<34); BILIRUBIN,TOTAL 0.2 MG/DL (0.3-1.2); BLOOD UREA NITROGEN 19 MG/DL (9-23); CALCIUM LEVEL 9.7 MG/DL (8.5-10.1); CARBON DIOXIDE LEVEL 31 MMOL/L (20-31); CHLORIDE LEVEL 102 MMOL/L (98-107); CREATININE FOR GFR 0.71 MG/DL (0.55-1.30); GLOMERULAR FILTRATION RATE > 60.0 (>51); GLUCOSE, FASTING 78 MG/DL (60-100); POTASSIUM SERUM 4.2 MMOL/L (3.5-5.1); RHEUMATOID FACTOR QUANT 6.1 IU/ML (<14); SODIUM LEVEL 139 MMOL/L (136-145); TOTAL PROTEIN 6.9 G/DL (5.7-8.2)
[2023-12-18 19:27] LABS: ERYTHROCYTE SEDIMENTATION RATE 6 mm/hr (0-30)
[2023-12-20 14:09] LABS: ANTINUCLEAR ANTIBODIES DIRECT Negative (Negative)
== END ==
LOC: M PLALAB 15:07
PROVIDERS: ATTEND Student in an Organized Health Care Education/Training Program
DX: M25.561 Pain in right knee (principal)

== ENCOUNTER → 2024-07-15 | Outpatient (CLI) | payer BC ==
[2024-07-15 19:42] LABS: ALBUMIN 4.2 G/DL (3.2-5.2); BLOOD UREA NITROGEN 10 MG/DL (9-23); CALCIUM LEVEL 10.3 MG/DL (8.5-10.1); CARBON DIOXIDE LEVEL 29 MMOL/L (20-31); CHLORIDE LEVEL 106 MMOL/L (98-107); GLOMERULAR FILTRATION RATE > 60.0 (>51); GLUCOSE, FASTING 108 MG/DL (60-100); POTASSIUM SERUM 3.9 MMOL/L (3.5-5.1); SODIUM LEVEL 140 MMOL/L (136-145)
== END ==
LOC: M PLALAB 14:56
PROVIDERS: ATTEND Nurse Practitioner Family
DX: L70.0 Acne vulgaris (principal); Z79.899 Other long term (current) drug therapy

== ENCOUNTER → 2024-09-13 | Outpatient (CLI) | payer BC | LOC: M WHC 15:14 | PROVIDERS: ATTEND Specialist | DX: Z12.31 Encounter for screening mammogram for malignant neoplasm of breast (principal); R92.323 Mammographic fibroglandular density, bilateral breasts ==

== ENCOUNTER → 2024-09-13 | Outpatient (REF) | payer OTHER ==
[2024-09-17 11:02] LABS: HPV APTIMA Detected (Not Detected)
== END ==
LOC: M SFHCWAGY 17:17
PROVIDERS: ATTEND Specialist
DX: Z12.4 Encounter for screening for malignant neoplasm of cervix (principal); R87.610 Atypical squamous cells of undetermined significance on cytologic smear of cervix (ASC-US)
CPT/HCPCS: 87624; G0123

== ENCOUNTER → 2024-11-21 | Outpatient (REF) | payer OTHER, BC | LOC: M SFHCWAGY 08:21 | PROVIDERS: ATTEND Specialist | DX: R87.613 High grade squamous intraepithelial lesion on cytologic smear of cervix (HGSIL) (principal) ==

== ENCOUNTER → 2025-01-13 | Outpatient (REF) | payer BC, OTHER | LOC: M SFHCWAGY 17:32 | PROVIDERS: ATTEND Specialist | DX: N87.1 Moderate cervical dysplasia (principal) ==

== ENCOUNTER → 2025-07-24 | Outpatient (REF) | payer BC, OTHER ==
[~2025-07-24] MED LIST changes: -IBUP-1022 PO; +IBUP600T42 PO
[2025-07-27 03:08] LABS: HPV APTIMA Not Detected (Not Detected)
== END ==
LOC: M SFHCWAGY 15:23
PROVIDERS: ATTEND Specialist
DX: D06.7 Carcinoma in situ of other parts of cervix (principal); R87.620 Atypical squamous cells of undetermined significance on cytologic smear of vagina (ASC-US)
CPT/HCPCS: 87624; G0123